=== PATIENT | male | born 1960 | race Caucasian/White ===

== ENCOUNTER → 2025-01-13 15:02 | Outpatient (CLI) | payer MEDICARE, BC, SELFPAY ==
--- NOTE | 2025-01-13 15:08 | DI.RAD.S_ITS ---
PROCEDURE: XR LUMBAR SPINE MIN 4V INDICATIONS: BACK PAIN TECHNIQUE: 5 views of the lumbar spine were acquired, including bilateral oblique views. COMPARISON: None. FINDINGS: Moderate degenerative changes of the lumbar spine with facet osseous hypertrophic changes and disc space narrowing and osteophytes most notably L3-4, L4-5 and L5-S1 with suspected neural foraminal narrowing. Minimal dextroscoliosis of the upper lumbar spine some of which may be artifact from positioning. Pattern of constipation possible obstipation incidentally noted. Vascular calcifications of the aorta and iliac vessels. Degenerative changes bilateral hips partially imaged. No radiographic evidence of fracture, subluxation or pars defects. IMPRESSION: Degenerative changes as discussed above. If symptoms persist or worsen, or there is high clinical suspicion of lumbar abnormality, MRI could be performed. Dictated by: Phu Adam M.D. on 01/13/2025 at 16:20 Approved by: Phu Adam M.D. on 01/13/2025 at 16:23
== END ==
PROVIDERS: Referring Provider Physical Medicine & Rehabilitation; Visit Provider Physical Medicine & Rehabilitation
DX: M47.816 Spondylosis without myelopathy or radiculopathy, lumbar region (principal); M47.817 Spondylosis without myelopathy or radiculopathy, lumbosacral region; M54.9 Dorsalgia, unspecified
CPT/HCPCS: 72110

== ENCOUNTER 2025-04-23 11:40 | Day surgery (SDC) | payer MEDICARE, BC, SELFPAY ==
--- NOTE | 2025-04-23 | PATH_ITS ---
[facility] Accession Number: [id number] No. of containers..01 Tissue . 01 Material submitted: . colon - CECAL POLYP . 01 Diagnosis: A: CECUM, POLYPECTOMY: Colonic mucosa with benign lymphoid aggregate. Negative for dysplasia, or malignancy. Additional deeper levels were examined. [facility] 05/06/2025 1348 Local . 01 Electronically signed: . Susu Aaron MD, Pathologist NPI- [id number] . 01 Gross description: . Received is one formalin-filled container labeled with the patient's name labeled 1. Cecal polyp. The specimen consists of one fragment of jj, soft tissue which measures 0.3 x 0.3 x 0.2 cm. The specimen is totally submitted in cassette A1. ([id number]) /[facility]ANTA 05/01/2025 0219 Local . 01 Pathologist provided ICD-10: Z12.11, Z86.0101 . 01 CPT . 933769 Specimen Comment: A courtesy copy of this report has been sent to [facility] Performed at: [address] [address], [place], [place] [id number] MD Raúl Boles MD Phone: [phone]
--- NOTE | 2025-04-23 06:30 | P.HP_ITS ---
History of Present Illness History of Present Illness Date Patient Seen: 04/23/25 Time Patient Seen: 06:30 Chief complaint: Colonoscopy Narrative: Patient presents for screening colonoscopy today. H/O polyps, last scope 5 years ago. [facility] Medical History (Updated 04/23/25 @ 06:31 by Juni Johnson MD) Lumbosacral radiculopathy Meds Home Medications and Allergies Home Medications ?Medication ?Instructions ?Recorded ?Confirmed ?Type allopurinol 100 mg tablet 200 mg PO DAILY 01/13/25 History naproxen sodium 220 mg tablet 220 mg PO BID PRN 01/13/25 History (Aleve) sodium,potassium,mag sulfates 17.5 See Rx Instructions PO .COMPLEX 03/16/25 Rx gram-3.13 gram-1.6 gram oral soln #354 mL (Suprep Bowel Prep Kit) Allergies Allergy/AdvReac Type Severity Reaction Status Date / Time No Known Drug Allergies Allergy Unverified 01/13/25 15:19 Exam Narrative Exam Narrative: Const General: healthy appearing, comfortable and no acute distress Orientation: alert and oriented x3 HENMT Ears: hearing grossly normal bilaterally Eyes Visual Horne: normal visual horne by confrontation Conjunctivae: conjunctivae normal Sclera: sclerae normal EOM: EOM intact bilaterally Resp Effort & Inspection: normal respiratory effort and able to speak in complete sentences Cardio Rate: regular rate GI Palpation: soft (NT) Extrem General: no pedal edema and no calf tenderness Assessment & Plan Assessment and plan (1) H/O adenomatous polyp of colon: Status: Acute (2) Encounter for screening colonoscopy: Status: Acute Plan Plan screening colonoscopy, possible biopsy. The risks, benefits and options regarding the procedure were explained to the patient in detail. Risk discussion included but not limited to: bleeding, perforation, missed lesion, unable to reach cecum. The patient was encouraged to ask questions and they were answered to their satisfaction. The patient understands and is agreeable to proceed. Time-Based Coding :: [TOTAL MINUTES] spent with patient and on the chart (including review of chart, obtaining history, exam, reviewing outside data, placing orders, documenting exam and treatment plan, and counseling patient) on [DATE]. [employer] Document charge(s): Yes Charge Codes Inpatient/observation care including admit and discharge same day: [id number]
[2025-04-23 12:10] VITALS: BP 133/81; PULSE 89; RESP 15; TEMP 36.6; O2SAT 99
[2025-04-23] MEDS: LACTATED RINGERS 1,000 ML 42 ML IV (12:11)
--- NOTE | 2025-04-23 12:25 | PM.OP.COLON ---
Operative Date/Time/Diagnoses Date of procedure: 04/23/25 Time of procedure: 13:02 Pre-op diagnosis: H/O colon polyps Post-op diagnosis: other (cecal polyp, extensive diverticulosis, possible sigmoid stricture) Procedure & Clinicians Study performed: Colonoscopy with polypectomy Same procedure(s) as scheduled: Yes Indications: 64yo M, h/o colon polyps Surgeon: Juni Johnson Anesthesia Type: MAC +/- Procedure Notes SCOAP/Timeout: Performed Procedure in detail: Colonoscopy Patient placed in left lateral recumbent position. Time out was performed. Procedural sedation was administered by anesthesia. Examination began with a thorough inspection of the perianal area. There was no evidence of fissures, fistulae, external hemorrhoids or cutaneous malignancy. The colonoscope was then placed into the rectum and the lumen was insufflated with carbon dioxide. The scope was carefully advanced forward. Ultimately the cecum was intubated and confirmed by identification of the ileocecal valve, the appendiceal orifice and the confluence of the taenia. The scope was then slowly withdrawn examining the colon thoroughly in all directions. In the rectum, retroflexion of the scope was performed for inspection of the distal rectum and anal canal. ?Significant colonoscopy findings: ?1. Quality of the preparation-poor, [place] 1-2, improved with irrigation/suction, small lesions could be missed ?2. 3mm sessile, benign-appearing polyp, removed with cold snare and sent to pathology 3. Extensive diverticulosis, concentrated in sigmoid and scattered throughout, sigmoid difficult to traverse with scope, required water colonoscopy, possible sigmoid stricture 4. Large internal hemorrhoids, 3 columns, would be candidates for banding if symptomatic Scope withdrawal time: 9 minutes Findings: divertiulosis and polyp(s) Specimen(s): other (polyp) Estimated Blood Loss: 5 Complications: none Impression: Single 3mm cecal polyp, path pending Extensive diverticulosis, sigmoid stricture likely, difficult to pass scope through Large internal hemorrhoids, candidates for banding if symptomatic Post-procedure Recommendations: Colonoscopy in 10 years Plan for aftercare: PACU then home Follow up: as needed Disposition: PACU
[2025-04-23 12:58] VITALS: BP 95/54; PULSE 74; RESP 18; TEMP 36.1; O2SAT 97
[2025-04-23 13:05] VITALS: BP 97/57; PULSE 66; RESP 18; O2SAT 99
[2025-04-23 13:09] VITALS: BP 99/57; PULSE 23; RESP 77; TEMP 36.2; O2SAT 98
[2025-04-23 13:10] VITALS: BP 99/65; PULSE 72; RESP 16; TEMP 36.1; O2SAT 98
== END 2025-04-23 13:24 | disposition home or self-care (01) ==
PROVIDERS: Referring Provider Surgery; Visit Provider Surgery
PROC: 0DJD8ZZ Inspection of Lower Intestinal Tract, Via Natural or Artificial Opening Endoscopic (ICD-10-PCS; CPT 45378; principal; 2025-04-23 12:45)
DX: Z12.11 Encounter for screening for malignant neoplasm of colon (principal); Z86.0100 Personal history of colon polyps, unspecified; K57.30 Diverticulosis of large intestine without perforation or abscess without bleeding; K64.8 Other hemorrhoids; K63.5 Polyp of colon
CPT/HCPCS: 45385; J2405; J2704; J7120